=== PATIENT | male | born 1995 | race Caucasian/White ===

== ENCOUNTER 2022-03-01 10:21 | Emergency (ER) | payer OTHER, SELFPAY ==
--- NOTE | ~2022-03-01 | XR_ITS ---
EXAMINATION: XR abdomen/kub 1V INDICATION: Right lower quadrant pain TECHNIQUE: Supine views of the abdomen were obtained on 2 radiographs. COMPARISON: CT from today FINDINGS: The known right distal ureteral stone is obscured by excreted contrast in the urinary bladd er. There is a persistent right nephrogram. The bowel gas pattern is normal. The lung bases are clear . IMPRESSION: 1. Known right distal ureteral stone obscured by excreted contrast in the urinary bladder. 2. Delayed right nephrogram, consistent with ureteral stone. Reviewed, dictated and finalized at location A. IMPRESSION: 1. Known right distal ureteral stone obscured by excreted contrast in the urina ry bladder. 2. Delayed right nephrogram, consistent with ureteral stone.
--- NOTE | ~2022-03-01 | CT_ITS ---
EXAMINATION: CT abdomen pelvis w con INDICATION: Lower abdominal pain, nausea TECHNIQUE: Computed tomographic images of the abdomen and pelvis were obtained after the administrati on of 100 cc of Omnipaque 300 intravenous contrast. The dose-length product (DLP) was 218.03 mGy-cm. Automated exposure control and iterative reconstruction technique were employed. COMPARISON: None available FINDINGS: The lung bases are clear. The heart size is normal. The liver, spleen, pancreas, gallbladde r, and adrenal glands are normal. The left kidney is unremarkable. There is a 3 mm distal right urete r which causes moderate right hydroureteronephrosis. There is mildly decreased perfusion of the right kidney compared to the left. No pathologically enlarged abdominal or pelvic lymph nodes are identifi ed. There is no free intraperitoneal gas or evidence of bowel obstruction. The appendix is normal. IMPRESSION: 1. 3 mm stone of the distal right ureter causing moderate right hydroureteronephrosis. Reviewed, dictated and finalized at location A. IMPRESSION: 1. 3 mm stone of the distal right ureter causing moderate right hydroureteronep hrosis.
[2022-03-01 10:19] VITALS: BP 145/80; PULSE 69; RESP 20; TEMP 36.7; O2SAT 99
--- NOTE | 2022-03-01 10:26 | ED.ABDPAIN ---
HPI - Abdominal Pain General Chief Complaint: Abdominal Pain Stated Complaint: ABD PAIN , N/V/D, DIFFICULTY URINATING Source: RN notes reviewed History of Present Illness HPI narrative: Patient presents emergency room from home for abdominal pain. Patient states symptoms began yesterday. The pain is located in the right lower quadrant does not radiate described as sharp and stabbing. Associate with nausea vomiting and diarrhea patient called EMS this morning for continued symptoms patient was given fentanyl and Zofran by EMS. Patient states he did take [id number] medication for UTI as he felt he had had increased urination possible UTI. Denies any fevers or chills chest pain shortness of breath or any other symptoms Related Data Allergies Allergy/AdvReac Type Severity Reaction Status Date / Time No Known Allergies Allergy Verified 03/01/22 10:24 Review of Systems Review of Systems: Gen.: Denies fevers or chills ENT: Denies congestion Respiratory: Denies shortness of breath or cough CV: Denies chest pain or palpitations GI: See HPI denies burning, urgency, frequency or hematuria Musculoskeletal: Denies back pain or muscle pain Neuro: Denies numbness, tingling, weakness or focal weakness Skin: Denies rash Except as documented, all other systems reviewed and negative [facility] Past Medical History Medical History (Updated 03/01/22 @ 13:23 by Randolph Presley DO) Testicular torsion Social History Social History (Updated 03/01/22 @ 10:27 by Randolph Presley DO) Substance use type: marijuana Exam Narrative: APPEARANCE: No acute distress, nontoxic, resting in bed HEENT: Normocephalic, atraumatic, OMM RESPIRATORY: No respiratory distress, clear to auscultation bilaterally with no rhonchi wheezing or rales CARDIOVASCULAR: RRR s murmur ABDOMINAL: Soft nondistended tender palpation right lower quadrant right upper quadrant no tenderness left upper quadrant left lower quadrant no rebound or guarding MUSCULOSKELETAl: Moves all extremities. No clubbing, cyanosis or edema. NEURO: Awake and alert. Following commands, speech normal, no focal deficits SKIN:: Warm, dry. Normal Color PSYCHIATRIC: Normal affect/mood Course Course Emergency Course: Discussed with MARYANN Gracia for DrBlaire Blood presentation work-up at this time recommends patient started on Bactrim his urine cannot be fully evaluated secondary to him taking Azo with follow-up as an outpatient Discussed with patient results of workup and diagnosis. Discussed need for follow-up with primary care, proper use of medication, and reasons to return to the emergency department. Patient understands and agrees to current treatment plan patient states abdominal pain is improved at this time Vital Signs Vital signs: Vital Signs Temperature 98.0 F 03/01/22 10:19 Pulse Rate 69 03/01/22 10:19 Respiratory Rate 20 03/01/22 10:19 Blood Pressure 145/80 H 03/01/22 10:19 Pulse Oximetry 99 03/01/22 10:19 Oxygen Delivery Room Air 03/01/22 10:19 Temperature 98.0 F 03/01/22 10:19 Pulse Rate 78 03/01/22 13:12 Respiratory Rate 18 03/01/22 13:12 Blood Pressure 138/72 03/01/22 13:12 Pulse Oximetry 99 03/01/22 13:12 Oxygen Delivery Room Air 03/01/22 10:19 MDM - Abdominal Pain MDM Narrative Medical decision making narrative: Patient's abdomen is soft without significant pain or signs of surgical abdomen on serial exams. Lab and x-ray evaluations are reviewed and patient is felt to be a reasonable candidate for outpatient management. Patient was instructed as to limitations of x-ray and laboratory evaluation and encouraged to return to ED or primary physician for repeat exam in 12 hours if continued or worsening pain Lab Data Result diagrams: 03/01/22 10:53 03/01/22 10:53 Labs: Lab Results 03/01/22 03/01/22 03/01/22 Range/Units 10:53 10:53 12:26 WBC 12.9 H (4.5-10.0) K/mm3 RBC 4.88 (4.6-6.2
[2022-03-01 10:57] LABS: Basophils Absolute Auto 0.1 K/mm3 (0.0-0.1); Basophils Percent Auto 0.6 % (0.2-1.2); Eosinophils Absolute Auto 0.1 K/mm3 (0-0.3); Eosinophils Percent Auto 0.5 % (0-4.4); Hematocrit 42.5 % (42.0-52.0); Hemoglobin 14.7 g/dL (14.0-18.0); Immature Granulocyte Absolute 0.05 K/mm3 (0.00-0.031); Immature Granulocyte Percent A 0.4 % (0-0.5); Lymphocytes Percent Auto 10.1 % (18.3-44.2); Mean Corpuscular HGB Conc 34.6 g/dl (32-36); Mean Corpuscular Hemoglobin 30.1 pg (26-34); Mean Corpuscular Volume 87.1 fl (80-100); Mean Platelet Volume 10.2 fl (7.4-10.4); Monocytes Absolute Auto 0.5 K/mm3 (0.1-0.6); Monocytes Percent Auto 4.1 % (2.6-8.5); Neutrophils Absolute Auto 10.9 K/mm3 (1.3-6.7); Neutrophils Percent Auto 84.3 % (45.5-73.1); Platelet Count Result 244 k/mm3 (150-375); Red Blood Count 4.88 M/mm3 (4.6-6.20); Red Cell Distribution Width 11.9 % (11.5-14.5); White Blood Count 12.9 K/mm3 (4.5-10.0)
--- NOTE | 2022-03-01 11:01 | PC.NURSE ---
1L NS infused IV from EMS adriánb shari garcia/ dr. villanueva
[2022-03-01 11:14] LABS: Alanine Aminotransferase 15 U/L (6-50); Albumin Level 4.7 g/dL (3.5-5.1); Alkaline Phosphatase 114 U/L (38-126); Anion Gap 5 mmol/L (8-16); Aspartate Amino Transferase 24 U/L (17-59); Bilirubin,Total 1.4 mg/dL (0.2-1.3); Blood Urea Nitrogen 12 mg/dL (9-20); Calcium 8.9 mg/dL (8.4-10.2); Carbon Dioxide 24 mmol/L (22-30); Chloride 106 mmol/L (98-107); Estimated CRCL calculation 112 ml/min; Estimated Glomerular Filt Rate > 60; Glucose 139 mg/dL (65-110); Lipase 47 U/L (23-300); Potassium 3.6 mmol/L (3.4-5.0); Sodium 135 mmol/L (137-145)
[2022-03-01] MEDS: KETOROLAC 30 MG/ML VIAL (*BKC) IV PUSH (11:17)
[2022-03-01] MEDS: TAMSULOSIN HCL 0.4 MG CAPSULE PO (11:58)
[2022-03-01 12:39] LABS: Add Urine Microscopic? YES; Appearance Urine Clear (Clear); Color Urine Orange (Yellow)
[2022-03-01 12:48] LABS: Mucus Urine Few /lpf; WBC Urine 0-3 /hpf
[2022-03-01] MEDS: MORPHINE SULFATE (*CRX) 4 MG/ML INJ IV PUSH (12:51)
[2022-03-01 13:12] VITALS: BP 138/72; PULSE 78; RESP 18; O2SAT 99
== END 2022-03-01 13:33 | disposition home or self-care (01) ==
PROVIDERS: Emergency Provider Emergency Medicine
DX: N13.2 Hydronephrosis with renal and ureteral calculous obstruction (principal)
CPT/HCPCS: 36415; 74018; 74177; 80053; 81001; 83690; 85025; 96374; 96375; 99284; A9270; J1885; J2270; Q9967